=== PATIENT | female | born 1935 | race Caucasian/White ===

== ENCOUNTER 2020-12-27 08:32 | Inpatient (IN) | payer MEDICARE, BC ==
[2020-12-27 09:39] VITALS: BMI 17.9
[2020-12-27] MEDS ORDERED: Sodium Chloride 0.9% 1,000 ML IV SCH (10:22)
[2020-12-27] MEDS ORDERED: Ondansetron ODT 4 MG TAB PO PRN (10:22)
[2020-12-27] MEDS ORDERED: Dextrose 5% in Water 1,000 ML IV PRN (10:22)
[2020-12-27] MEDS ORDERED: hydrALAZINE 20 MG/ML VIAL SLOW IVP PRN (10:22)
[2020-12-27] MEDS ORDERED: traMADol HCl 50 MG TAB PO PRN (10:22)
[2020-12-27] MEDS ORDERED: Dextrose 50% Abboject 50 ML SYRINGE SLOW IVP PRN (10:22)
[2020-12-27] MEDS: Acetaminophen 325 MG TAB PO SCH ×2 (11:28→18:24)
[2020-12-27] MEDS: Carbidopa/Levodopa 25-100 mg Tablet PO SCH ×2 (15:12→21:17)
[2020-12-27] MEDS: traMADol HCl 50 MG TAB PO PRN (17:02)
[2020-12-27] MEDS: Famotidine 20 MG TAB PO SCH (21:17)
[2020-12-27] MEDS: Carvedilol 25 MG TAB PO SCH (21:18)
[2020-12-27] MEDS: Spironolactone 25 MG TAB PO SCH (21:18)
[2020-12-28 04:07] LABS: #Lymphocytes 1.2 thou/uL (1.20-3.40); #Monocytes 0.7 thou/uL (0.11-0.59); #Neutrophils 6.3 thou/uL (1.40-6.50); %Basophils 0.4 % (0.0-1.0); %Eosinophils 0.6 % (0.0-10.0); %Lymphocytes 14.2 % (21.0-51.0); %Monocytes 8.1 % (0.0-10.0); %Neutrophils 76.8 % (42.0-75.0); Hemoglobin 10.8 g/dL (12.0-16.0); Mean Corpuscular Hemoglobin 33.4 pg (27.0-31.0); Mean Corpuscular Volume 98.2 fL (78.0-98.0); Mean Platelet Volume 7.8 fL (7.4-10.4); Platelet Count 156 thou/uL (130-400); RBC Distribution Width 11.1 % (11.5-14.5); Red Blood Cell (RBC) Count 3.23 mill/uL (4.20-5.40); White Blood Cell (WBC) Count 8.2 thou/uL (4.8-10.8)
[2020-12-28 04:08] LABS: Phosphorus 3.2 mg/dL (2.3-4.7)
[2020-12-28] MEDS: traMADol HCl 50 MG TAB PO PRN ×2 (04:09→09:43)
[2020-12-28 04:13] LABS: Anion Gap 12 mmol/L (10-20); BUN (Urea Nitrogen) 17 mg/dL (9.8-20.1); Calc. Creatinine Clearance 50 mL/min (70-130); Calcium 8.4 mg/dL (7.8-10.44); Carbon Dioxide 23 mmol/L (23-31); Chloride 108 mmol/L (98-107); Glucose 109 mg/dL (83-110); Magnesium 1.8 mg/dL (1.6-2.6); Potassium 4.1 mmol/L (3.5-5.1); Sodium 139 mmol/L (136-145)
[2020-12-28] MEDS: Acetaminophen 325 MG TAB PO SCH ×4 (06:39→17:29)
[2020-12-28] MEDS: Levothyroxine Sodium 25 MCG TAB PO SCH (06:39)
[2020-12-28] MEDS: Spironolactone 25 MG TAB PO SCH ×2 (09:13→20:02)
[2020-12-28] MEDS: Carbidopa/Levodopa 25-100 mg Tablet PO SCH ×3 (09:13→20:00)
[2020-12-28] MEDS: Famotidine 20 MG TAB PO SCH ×2 (09:13→20:00)
[2020-12-28] MEDS: Carvedilol 25 MG TAB PO SCH ×2 (09:13→20:00)
[2020-12-28] MEDS: Lisinopril 5 MG TAB PO SCH (09:13)
[2020-12-28] MEDS: Ondansetron PF 4 MG/2 ML Vial IVP PRN (10:33)
[2020-12-28] MEDS: Polyethylene Glycol 3350 17 GM Packet PO PRN (12:30)
[2020-12-28] MEDS: Bacitracin 1 PK TOP SCH ×2 (12:30→20:00)
[2020-12-29] MEDS: Acetaminophen 325 MG TAB PO SCH ×6 (00:17→23:48)
[2020-12-29] MEDS: Ondansetron PF 4 MG/2 ML Vial IVP PRN ×2 (03:24→09:30)
[2020-12-29] MEDS: Levothyroxine Sodium 25 MCG TAB PO SCH (06:25)
[2020-12-29] MEDS: Famotidine 20 MG TAB PO SCH ×2 (09:30→20:26)
[2020-12-29] MEDS: Lisinopril 5 MG TAB PO SCH (09:30)
[2020-12-29] MEDS: Spironolactone 25 MG TAB PO SCH ×2 (09:31→20:27)
[2020-12-29] MEDS: Carvedilol 25 MG TAB PO SCH ×2 (09:31→20:26)
[2020-12-29] MEDS: Carbidopa/Levodopa 25-100 mg Tablet PO SCH ×3 (09:31→20:27)
[2020-12-29] MEDS: traMADol HCl 50 MG TAB PO PRN (09:31)
[2020-12-29] MEDS: Bacitracin 1 PK TOP SCH ×3 (09:32→20:26)
[2020-12-29] MEDS ORDERED: Scopolamine 1.5 mg/72 hour Patch TD SCH (09:45)
[2020-12-29] MEDS: Polyethylene Glycol 3350 17 GM Packet PO PRN (14:18)
[2020-12-30] MEDS: Levothyroxine Sodium 25 MCG TAB PO SCH (05:47)
[2020-12-30] MEDS: Acetaminophen 325 MG TAB PO SCH ×2 (05:57→12:13)
[2020-12-30] MEDS ORDERED: Senokot 8.6 MG TAB PO PRN (09:04)
[2020-12-30] MEDS: Bacitracin 1 PK TOP SCH (09:18)
[2020-12-30] MEDS: Carbidopa/Levodopa 25-100 mg Tablet PO SCH (09:18)
[2020-12-30] MEDS: Spironolactone 25 MG TAB PO SCH (09:18)
[2020-12-30] MEDS: Lisinopril 5 MG TAB PO SCH (09:18)
[2020-12-30] MEDS: Famotidine 20 MG TAB PO SCH (09:19)
[2020-12-30] MEDS: Carvedilol 25 MG TAB PO SCH (09:19)
[2020-12-30 12:06] VITALS: BP 105/67; TEMP 98
== END 2020-12-30 14:25 | disposition home health service (06) | DRG 83 ==
LOC: CCU 09:14 → SURG A 12-29 21:19
PROVIDERS: ADMIT Surgery; ATTEND Surgery
DX: S06.6X9A Traumatic subarachnoid hemorrhage with loss of consciousness of unspecified duration, initial encounter (principal); E44.1 Mild protein-calorie malnutrition; Z68.1 Body mass index [BMI] 19.9 or less, adult; W06.XXXA Fall from bed, initial encounter; E78.00 Pure hypercholesterolemia, unspecified; I11.0 Hypertensive heart disease with heart failure; I50.9 Heart failure, unspecified; S06.5X9A Traumatic subdural hemorrhage with loss of consciousness of unspecified duration, initial encounter; S01.81XA Laceration without foreign body of other part of head, initial encounter; F07.81 Postconcussional syndrome; R40.2412 Glasgow coma scale score 13-15, at arrival to emergency department; Z88.8 Allergy status to other drugs, medicaments and biological substances; Z79.82 Long term (current) use of aspirin; Z79.899 Other long term (current) drug therapy; Z85.3 Personal history of malignant neoplasm of breast; Z95.0 Presence of cardiac pacemaker; Z90.49 Acquired absence of other specified parts of digestive tract
CPT/HCPCS: 36415; 70450; 71045; 80048; 83735; 84100; 85025; J2405